=== PATIENT | male | born 1945 | race Caucasian/White ===

== ENCOUNTER 2025-01-10 06:18 | Day surgery (SDC) | payer OTHER ==
[~2025-01-10] VITALS: Ht 172.7 cm; Wt 111.1 kg
[~2025-01-10 06:18] MED LIST: ALBUAER3 IN; APIX5TAB PO; CARB200T4 PO; FINA5TAB4 PO; GABA-1250 PO; METO-289 PO; MULTLIQ29 OR; OME20GT GT; PRAV20TA3 GT; PSYL0.5223 PO; TAMS1CAP25 PO
[2025-01-10] MEDS ORDERED: BUPIVACAINE 0.25% INJ 50ML VIAL ONE (07:01)
[2025-01-10] MEDS ORDERED: LIDOCAINE 1%-Mpf/Epinephrine 1:200,000 30ml VIAL ONE (07:01)
[2025-01-10] MEDS ORDERED: ONDANSETRON HCL 4 MG/2 ML VIAL ONE (07:03)
[2025-01-10] MEDS ORDERED: LIDOCAINE 1% INJ PF 5ML AMP ONE (07:03)
[2025-01-10] MEDS ORDERED: PROPOFOL 10 MG/ML 20 ML IV ONE (07:03)
[2025-01-10] MEDS ORDERED: KETOROLAC TROMETH 30 MG/ML 1ML VIAL ONE (07:03)
[2025-01-10] MEDS ORDERED: GLYCOPYRROLATE 0.2 MG/ML 1ML VIAL ONE (07:03)
[2025-01-10] MEDS ORDERED: KETAMINE 50mg/ML 1ml syringe ONE (07:03)
[2025-01-10] MEDS ORDERED: DexAMETHasone SOD PHOS 10MG/1ML VIAL INJ ONE (07:03)
[2025-01-10] MEDS ORDERED: ceFAZolin 2 GM/D5W50ml 50 ML IV ONE (07:07)
[2025-01-10] MEDS ORDERED: LIDOCAINE 2%HCL (LOCAL ANESTH.) INJ 10ml MDV ONE (07:20)
[2025-01-10] MEDS: LIDOCAINE 1%HCL (LOCAL ANESTH) 10 ML MDV IJ ONE (07:25)
[2025-01-10] MEDS: BUPIVACAINE 0.5% P/F INJ 10 ML VIAL ONE (07:25)
--- NOTE | 2025-01-10 07:35 | DVHOP2 ---
Operative Report - 2 Report Details Date: 01/10/25 Preop Diagnosis: Left carpal tunnel syndrome Postop Diagnosis: Left carpal tunnel syndrome Surgeon: Tonye Hoang MD Job Lithographer: Aicha TERRY Anesthesiologist: Eyad Coley CRNA Anesthesia: Mac, Local Consent: The patient was informed of the risks and benefits of the procedure. These include but are not limited to complications of anesthesia, postoperative infection, incomplete relief of symptoms, recurrence of symptoms, damage to blood vessels, nerves and tendons, deep venous thrombosis, pulmonary embolism and possible need for repeat surgery in the future. Complications: None Estimated Blood Loss: None Fluids: See anesthesia record Findings: Visualized anatomy normal Indications for Surgery: Left carpal tunnel syndrome with persistent symptoms and full-time loss of sensation Name of Procedure Performed Left carpal tunnel release Procedure Details Procedure Details: Patient was brought to the operating room and placed on the table in supine position. Preop patient received IV Ancef. Tourniquet applied to left upper extremity. Conscious sedation given. Left upper extremity was prepped and draped in sterile fashion. Surgical time-out was performed verifying patient, laterality, and procedure. I injected local anesthetic in the palm of the hand at the proposed incision site. This consisted of 50% 0.5% Marcaine and 50% 2% lidocaine and proximally 8 cc were used. Extremity was then elevated, exsanguinated with Esmarch, and tourniquet inflated to 250 mm Hg. Skin incision was made subcutaneous fat was spread with scissors identifying the palmar fascia which was split in line with its fibers and self-retaining retractor applied. I then used the Francesca hand tome instruments one two and three to prepare the carpal ligament followed by use of the specialized scalpel for carpal ligament release. [place] palpation direct visualization confirmed adequate release. The wound was then closed with nylon dressed sterilely and tourniquet released. Patient tolerated the procedure well was brought to recovery room in stable condition. Condition Stable Disposition Home TONEY HOANG MD Jan 10, 2025 07:35
[2025-01-10 07:37] VITALS: RESP 15; TEMP 98.2; O2SAT 96
[2025-01-10] MEDS ORDERED: fentaNYL CITRATE 100 MCG/2 ML VL IV PRN (07:45)
[2025-01-10] MEDS ORDERED: hydrALAZINE HCL 20 MG/ML VL IV PRN (07:45)
[2025-01-10] MEDS ORDERED: FLUMAZENIL 0.1 MG/ML INJ 10ML MDV IV PRN (07:45)
[2025-01-10] MEDS ORDERED: ePHEDrine SULFATE 50 MG/ML AMP IV PRN (07:45)
[2025-01-10] MEDS ORDERED: NALOXONE HCL 0.4 MG/ML VIAL IV PRN (07:45)
[2025-01-10] MEDS ORDERED: HYDROmorphone HCL 2 MG/ML VL/or syr IV PRN (07:45)
[2025-01-10] MEDS ORDERED: ONDANSETRON HCL 4 MG/2 ML VIAL IV PRN (07:45)
[2025-01-10 07:55] VITALS: BP 139/78; PULSE 74; RESP 11; O2SAT 94
== END 2025-01-10 08:13 | disposition home or self-care (01) ==
LOC: SUR 06:18
PROVIDERS: ATTEND Orthopaedic Surgery
DX: G56.02 Carpal tunnel syndrome, left upper limb (principal); J45.909 Unspecified asthma, uncomplicated; I48.91 Unspecified atrial fibrillation; E66.01 Morbid (severe) obesity due to excess calories; Z68.37 Body mass index [BMI] 37.0-37.9, adult; Z86.2 Personal history of diseases of the blood and blood-forming organs and certain disorders involving the immune mechanism; Z98.890 Other specified postprocedural states; Z87.891 Personal history of nicotine dependence
CPT/HCPCS: 64721; J0690; J1100; J1885; J2003; J2405; J2704; J3490

== ENCOUNTER 2025-04-03 08:08 | Inpatient (IN) | payer OTHER ==
[2025-04-03] VITALS (12 sets, daily range): BP systolic 119–146; BP diastolic 69–96; PULSE 68–116; RESP 11–20; TEMP 97.7–98.7; O2SAT 93–99
[~2025-04-03] VITALS: Ht 172.7 cm; Wt 117.1 kg
[~2025-04-03 08:08] MED LIST changes: +CHOL25CH3 PO
[2025-04-03] MEDS: ROPIVACAINE 0.5% (5MG/ML) 20ML AMPULE IJ ONE (08:20)
[2025-04-03] MEDS ORDERED: MIDAZOLAM HCL 2MG/2ML 2ml VIAL (1mg/ml) ONE (08:37)
[2025-04-03] MEDS ORDERED: fentaNYL CITRATE 100 MCG/2 ML VL ONE (08:37)
[2025-04-03] MEDS ORDERED: PROPOFOL 10 MG/ML 20 ML IV ONE ×2 (08:39→10:30)
[2025-04-03] MEDS ORDERED: MORPHINE SULF PF 5 MG/10 ML VIAL ONE (08:51)
[2025-04-03] MEDS ORDERED: KETOROLAC TROMETH 30 MG/ML 1ML VIAL ONE (08:52)
[2025-04-03] MEDS: CEFEPIME 1GM/ 50ML 50 ML IV ONE (08:54)
[2025-04-03] MEDS: ceFAZolin 2 GM/D5W50ml 50 ML IV ONE (08:54)
[2025-04-03] MEDS: VANCOMYCIN HCL 1000 MG VL ONE (09:25)
[2025-04-03] MEDS: TRANEXAMIC ACID 20 ML ONE (09:25)
--- NOTE | 2025-04-03 10:46 | DVHOP2 ---
Operative Report - 2 Report Details Date: 04/03/25 Preop Diagnosis: Right knee degenerative arthritis Postop Diagnosis: Right knee degenerative arthritis Surgeon: Toney Hoang MD [place] Accommodation Consultant: Aicha TERRY Anesthesiologist: Loreta Anesthesia: Regional Drains: Kedar closed wound suction Implant: Tary clark knee size seven femur PS, size six tibial base plate, size 10 poly, size 32 patella Consent: The patient was informed of the risks and benefits of the procedure. These include but are not limited to complications of anesthesia, postoperative infection, incomplete relief of symptoms, recurrence of symptoms, damage to blood vessels, nerves and tendons, deep venous thrombosis, pulmonary embolism and possible need for repeat surgery in the future. Complications: None Estimated Blood Loss: 50 cc Fluids: See anesthesia record Findings: Varus deformity, osteophytes, denuded cartilage with eburnated bone Indications for Surgery: right knee degenerative arthritis with severe pain and functional impairment despite nonoperative management Name of Procedure Performed Right total knee arthroplasty Procedure Details Procedure Details: The patient was brought to the operating room and placed on the table in the supine position after being given spinal anesthetic with adequate analgesia obtained. Surgical timeout was performed verifying patient, laterality and procedure Preop patient received IV cefepime IV Ancef and IV tranexamic acid. Tourniquet was applied to the lower extremity. Lower extremity was prepped and draped in sterile fashion. Extremity was elevated, exsanguinated Esmarch, and tourniquet inflated. Midline incision was made followed by medial arthrotomy. I exposed the anterior medial and lateral tibial plateau and the anterior distal femur. Bovie and aqua mantis were used for hemostasis. I excised the anterior meniscal tissue with Bovie. I excised a portion of the fat pad with Bovie. The patella was everted and the knee flexed. I drilled the distal femur and suctioned the hole to reduce the risk of fat emboli. I inserted intramedullary guide with 5 degree valgus setting. I pinned the distal femoral cutting block anteriorly. Intramedullary carin was removed. Distal femoral cut was made and the block removed. I brought my attention to the tibia setting up the external cutting jig for the tibia paying attention to slope, rotation and varus valgus alignment. I set the depth and pinned the block. I used the external alignment carin to aid in checking alignment. Bone cut was made and bone removed releasing soft tissue attachments with Bovie. Cutting block removed. I then checked the extension gap and deemed adequate and removed the femur and tibia pins. I flexed the knee and applied the femoral sizing guide to the femur. I checked the size and external rotation setting at 90 degrees to [place] line and checking the epicondylar axis. I drilled the holes then removed the sizing guide and pin. I then tapped on the 4 in 1 cutting block and checked with the elias wing anteriorly to make sure that I would not notch then pinned the block. Cuts were made and the block and pins were removed. Bone was removed with curved osteotome. I used a rongeur to remove any remaining osteophytes at the femur and tibia. I then used a lamina telecommunication engineer to open up the back alternating between the medial and lateral side. Any remaining meniscal tissue was excised with scalpel. I used curved osteotome, curette and rongeur to remove any posterior osteophytes. I prophylactically coagulated with aqua mantis. I then tapped on the template for the box cut and pinned it. Box cut was made and bone removed. Template and pin removed. I then tapped on the femoral trial. I then brought my attention back to the tibia sizing it. I used the external alignment carin to make sure that rotation and alignment were good. I made a Bovie anderson at the tibial tray anderson identifying rotation for later use. I tried various tibial polytrials. [I then brought my attention to the patella. I sequentially dissected soft tissue with Bovie. I checked the thickness with caliper. I set the appropriate depth of cut on the cutting guide. I attached the cutting guide made my cut. I then sized the patella and made my drill holes. I then placed the patella trial with appropriate depth based on overall precut thickness. ] The patella tracked nicely without thumb pressure. I removed the trials. I pinned the tray and used the reamer and keel punch. The implants were brought into the field while bone preparation was started. I used both normal saline irrigation and the CarboJet to prepare the bone. I used the bone from the cuts to graft the femoral tunnel. Once cement was ready I applied cement to the tibial implant and tibial bone tapped it on a nd removed excess cement in usual fashion. In similar fashion I tapped on the femoral implant. I inserted the trial polyethylene and brought the knee into 30 degrees flexion. [I then applied the patella implant in similar fashion holding pressure with the pressurization device.] I irrigated with bactisurge irrigant. Once cement cured, I checked stability and range of motion as well as patella tracking. tourniquet was released and hemostasis maintained with aqua mantis. I inserted the polyethylene and again checked stability. I used a 2 grams of vancomycin half of which was placed deep and half superficial. I repaired the extensor mechanism with the knee in flexion with #1 Ethibond interrupted [id number]. Deep subcutaneous tissue was closed with 0 Vicryl. Superficial subcutaneous tissue was closed with 2-0 vicryl interrupted. Skin was closed with nelida. I then applied the [kedar closed wound suction]. Patient tolerated the procedure well and was brought to recovery room in stable condition. Condition Stable Disposition Still a Patient TONEY HOANG MD Apr 03, 2025 10:46
[2025-04-03] MEDS ORDERED: ACETAMINOPHEN 325 MG TAB PO PRN ×2 (11:00→11:45)
[2025-04-03] MEDS ORDERED: OMEPRAZOLE-SOD BICARB 20 MG POWDER PO ONE (11:15)
[2025-04-03] MEDS: OMEPRAZOLE-SOD BICARB 20 MG POWDER GT ONE (11:15)
[2025-04-03] MEDS ORDERED: MEPERIDINE HCL (25 MG/ML) 1ML VIAL IV PRN (11:30)
[2025-04-03] MEDS ORDERED: ACETAMINOPHEN IV 1000 MG/100ML (10MG/ML) IV PRN (11:30)
[2025-04-03] MEDS: ALBUTEROL SULF 2.5 MG/0.5ML(0.5%) NEB SOLN NEB PRN (11:57)
--- NOTE | 2025-04-03 12:15 | DVH ---
EXAM: XY R KNEE 3V XRAY CLINICAL INDICATION: postop TECHNIQUE: XY R KNEE 3V XRAY Comparison: None FINDINGS/IMPRESSION: Right total knee arthroplasty. Surgical skin nelida.
[2025-04-03] MEDS: BUPIVACAINE W/ EPINEPH 0.5% INJ 50ML MDV IJ ONE (12:55)
[2025-04-03] MEDS: BUPIVACAINE 0.5% P/F INJ 10 ML VIAL ONE (12:55)
[2025-04-03] MEDS: ACETAMINOPHEN 325 MG TAB PO SCH (12:59)
[2025-04-03] MEDS: HYDROmorphone HCL 2 MG/ML VL/or syr IV PRN (13:50)
[2025-04-03] MEDS ORDERED: ALBUTEROL SULF HFA 90MCG INH 200DOSE IN SCH (14:00)
[2025-04-03] MEDS ORDERED: ceFAZolin 2 GM/D5W50ml 50 ML IV SCH (14:00)
[2025-04-03] MEDS: ONDANSETRON HCL 4 MG/2 ML VIAL IV ONE (14:51)
[2025-04-03] MEDS: KETOROLAC TROMETH 30 MG/ML 1ML VIAL ONE (15:43)
[2025-04-03] MEDS: D5W/LACTATED RINGERS 1,000 ML IV SCH (16:47)
[2025-04-03] MEDS: PANTOPRAZOLE 40 MG TAB PO ONE (16:47)
[2025-04-03] MEDS: ceFAZolin 2 GM/D5W50ml 50 ML IV SCH (17:40)
[2025-04-03] MEDS: TAMSULOSIN HYDROCHLORIDE 0.4 MG CAP PO SCH (21:48)
[2025-04-03] MEDS: APIXABAN 2.5 MG TAB PO SCH (21:49)
[2025-04-03] MEDS: carBAMazepine 200 MG TAB PO SCH (21:49)
[2025-04-03] MEDS: PRAVASTATIN SODIUM 20 MG TAB GT SCH (21:49)
[2025-04-03] MEDS: PREGABALIN 25 MG CAP PO SCH (21:49)
[2025-04-04] VITALS (7 sets, daily range): BP systolic 106–123; BP diastolic 53–67; PULSE 91–99; RESP 17–20; TEMP 36.8; O2SAT 92–95
[2025-04-04] MEDS: PANTOPRAZOLE 40 MG TAB PO SCH (05:00)
[2025-04-04 06:04] LABS: Hematocrit 42.3 % (41.0-53.0); Hemoglobin 14.3 g/dL (13.5-17.5); Mean Corpuscular Hemoglobin 32.3 pg (28.0-32.0); Mean Corpuscular Volume 95.5 fL (80.0-100.0); Nucleated Red Blood Cells % 0.1 %
[2025-04-04 06:08] LABS: Chloride 104 mmol/L (98-107); Potassium 3.9 mmol/L (3.5-5.1); Sodium 137 mmol/L (136-145)
[2025-04-04 06:09] LABS: Anion Gap 10 (5-15); Calcium 8.9 mg/dL (8.7-10.4); Carbon Dioxide 23 mmol/L (20-31)
[2025-04-04 06:14] LABS: BUN/Creatinine Ratio 10.8 (10.0-20.0); Blood Urea Nitrogen 12 mg/dL (9-23)
[2025-04-04 06:16] LABS: Glucose 137 mg/dL (74-106)
[2025-04-04] MEDS: FINASTERIDE 5 MG TAB PO SCH (08:51)
[2025-04-04] MEDS: METOPROLOL SUCCINATE XL 50 MG TAB PO SCH (08:52)
[2025-04-04] MEDS ORDERED: OMEPRAZOLE-SOD BICARB 20 MG POWDER GT SCH (10:00)
[2025-04-04] MEDS ORDERED: OMEPRAZOLE 20 MG GT SCH (10:00)
[2025-04-04] MEDS ORDERED: OMEPRAZOLE-SOD BICARB 20 MG POWDER PO SCH (10:00)
--- NOTE | 2025-04-04 12:44 | DVHDS2 ---
Discharge Summary Date of Admission Apr 03, 2025 at 10:47 Date of Discharge: Apr 04, 2025 Labs/Diagnostic Data: Laboratory Results Test 04/04/25 05:00 White Blood Count 12.5 10^3/uL (4.4-10.8) Red Blood Count 4.43 10^6/uL (4.5-5.90) Hemoglobin 14.3 g/dL (13.5-17.5) Hematocrit 42.3 % (41.0-53.0) Mean Corpuscular Volume 95.5 fL (80.0-100.0) Mean Corpuscular Hemoglobin 32.3 pg (28.0-32.0) Mean Corpuscular Hemoglobin Concent 33.8 g/dL (32.0-36.0) Red Cell Distribution Width 12.9 % (11.8-14.3) Platelet Count 221 10^3/uL (140-450) Mean Platelet Volume 7.9 fL (6.9-10.8) Neutrophils (%) (Auto) 79.9 % (37.0-80.0) Lymphocytes (%) (Auto) 10.9 % (10.0-50.0) Monocytes (%) (Auto) 9.1 % (0.0-12.0) Eosinophils (%) (Auto) 0.0 % (0.0-7.0) Basophils (%) (Auto) 0.1 % (0.0-2.0) Neutrophils # (Auto) 10.0 10 ^3/uL (1.6-8.6) Lymphocytes # (Auto) 1.4 10 ^3/uL (0.4-5.4) Monocytes # (Auto) 1.1 10 ^3/uL (0-1.3) Eosinophils # (Auto) 0 10 ^3/uL (0-0.8) Basophils # (Auto) 0 10 ^3/uL (0-0.2) Nucleated Red Blood Cells 0.1 % Sodium Level 137 mmol/L (136-145) Potassium Level 3.9 mmol/L (3.5-5.1) Chloride Level 104 mmol/L (98-107) Carbon Dioxide Level 23 mmol/L (20-31) Anion Gap 10 (5-15) Blood Urea Nitrogen 12 mg/dL (9-23) Creatinine 1.11 mg/dL (0.700-1.30) Glomerular Filtration Rate Calc 68 mL/min (>90) BUN/Creatinine Ratio 10.8 (10.0-20.0) Serum Glucose 137 mg/dL (74-106) Calcium Level 8.9 mg/dL (8.7-10.4) Other Laboratory Tests 04/04/25 05:00 Brief Hx & Hospital Course: PATIENT WAS BROUGHT TO THE HOSPITAL YESTERDAY TO UNDERGO A RIGHT TOTAL KNEE ARTHROPLASTY. HE TOLERATED THE PROCEDURE WELL WITHOUT COMPLICATIONS AND WAS KEPT OVERNIGHT FOR POSTOPERATIVE OBSERVATION. HE HAS REMAINED MEDICALLY STABLE DENYING ANY OVERNIGHT EVENTS AND REPORTS THAT HE WAS ABLE TO GET UP AND WALK WITH THE HELP OF PHYSICAL THERAPY AND HIS WALKER AND WAS ABLE TO GET DOWN TO THE NURSE'S STATION AND BACK TO HIS BED WITH SOME POSTOPERATIVE KNEE PAIN. PATIENT IS OTHERWISE FEELING WELL DENYING ANY OTHER COMPLAINTS OR CONCERNS DURING MY EVALUATION AND IS READY TO GO HOME. Condition at Discharge: Stable Final Diagnosis/Problems List Right knee degenerative arthritis Discharge Disposition: Home Discharge Instruct/Medications Diet: Regular Activity: See Comment Activity comment: Patient to remain weight-bearing as tolerated with the assistance of his walker Follow Up/Referral: Patient instructed to follow up with our office in 10-14 days for his 1st postoperative evaluation Medications: Rx sent via our outpatient EMR system Scheduled Albuterol Sulfate (Ventolin Mdi), 2 MCG IN Q4HP, (Reported) Apixaban Base (Eliquis), 5 MG PO BID, (Reported) Carbamazepine (Carbamazepine), 200 MG PO BID, (Reported) Cholecalciferol (D3), 25 MCG PO DAILY, (Reported) Finasteride (Finasteride), 5 MG PO DAILY, (Reported) Gabapentin (Gabapentin), 300 MG PO PRN, (Reported) Metoprolol Succinate (Metoprolol Succinate Er), 50 MG PO DAILY, (Reported) Multiple Vitamins W/ Minerals (Complete Multivitamin/Mul), 1 OR DAILY, (Reported) Omeprazole (Prilosec Susp (For Gt)), 20 MG GT DAILY, (Reported) Pravastatin Sodium (Pravachol Tablet), 10 MG GT HS, (Reported) Psyllium (Psyllium Fiber), Unknown Dose PO DAILY, (Reported) Tamsulosin HCl (Tamsulosin Hydrochloride), 0.4 MG PO BID, (Reported) Discharge Statement: "Patient was advised to return to the ER or call 911 if any headaches, dizziness, shortness of breath, chest pain, abdominal pain, bleeding, fevers, or worsening of medical condition. Patient was counseled about treatment plan, medications, possible side effects, patientverbalized understanding. All questions were answered to the best of my ability. This discharge took greater then 30 minutes in planning, reviewing documentation, counseling the patient, and discussing with other team members." ASSESSMENT ASSESSMENT Assessment Right knee degenerative arthritis TONO HIGHTOWER Apr 04, 2025 12:44
--- NOTE | 2025-04-04 12:45 | DVHPN2 ---
Progress Note - Dictate Date Seen: Apr 04, 2025 Medical Necessity Reason Pt with a Central, PICC or Fol: No Subjective Patient was lying comfortably in bed during my evaluation and reports some postoperative knee pain that is being improved somewhat with the help of pain medication. Patient reports that he was able to get up and walk with the help of physical therapy and his walker and was able to get down to the nurse's station and back to his bed with some postoperative knee pain but felt stable. Patient was otherwise feeling well denying any other complaints or concerns during my evaluation and is ready to go home. vital signs Vital Sign Date Time Temp Pulse Resp B/P (MAP) Pulse Ox O2 Delivery O2 Flow Rate FiO2 04/04/25 11:26 98.3 04/04/25 09:44 94 Room Air* 0 21 04/04/25 08:52 96 106/67 04/04/25 08:40 20 Total Intake and Output 04/03/25 04/03/25 04/04/25 15:00 23:00 07:00 Intake Total 220 ml 50 ml 1750 ml Output Total 140 ml 2000 ml Balance 220 ml -90 ml -250 ml medications Current Medications Medications Dose Ordered Sig/Radha Route Start Time Stop Time Status Last Admin Dose Admin Carbamazepine 200 mg BID PO 04/03/25 22:00 04/04/25 08:52 200 MG Finasteride 5 mg DAILY PO 04/04/25 10:00 04/04/25 08:51 5 MG Metoprolol Succinate 50 mg DAILY PO 04/04/25 10:00 04/04/25 08:52 50 MG Pravastatin Sodium 10 mg HS GT 04/03/25 22:00 04/03/25 21:49 10 MG Tamsulosin HCl 0.4 mg BID PO 04/03/25 22:00 04/04/25 08:51 0.4 MG Patient Own Medication 20 mg DAILY GT 04/04/25 10:00 UNV Dextrose/Lactated Ringer's 1,000 ml @ 100 mls/hr Q10H IV 04/03/25 11:00 04/04/25 07:00 100 MLS/HR Acetaminophen 650 mg Q6HR PO 04/03/25 12:00 04/04/25 11:26 650 MG Pregabalin 50 mg BID PO 04/03/25 22:00 04/04/25 08:52 50 MG Oxycodone HCl 5 mg Q4HP PRN PO 04/03/25 11:00 04/03/25 22:55 5 MG Oxycodone HCl 10 mg Q4HP PRN PO 04/03/25 11:00 04/03/25 14:36 10 MG Apixaban 2.5 mg BID PO 04/03/25 22:00 04/15/25 21:59 04/04/25 08:51 2.5 MG Albuterol 2.5 mg Q4HPRN PRN NEB 04/03/25 11:30 04/03/25 11:57 2.5 MG Acetaminophen 650 mg Q4HP PRN PO 04/03/25 11:45 Pantoprazole Sodium 40 mg DAILY@0600 PO 04/04/25 06:00 04/04/25 05:00 40 MG objective A&O x4 in no acute distress Knee range of motion grossly limited with pain on movement Orion dressing clean, dry, intact, and maintaining suction No distal edema or calf tenderness to palpation Neurovascularly intact with cap refill less than 2 seconds laboratory and microbiology Laboratory Tests 04/04/25 05:00 Test 04/04/25 05:00 Range/Units Serum Glucose 137 H 74-106 mg/dL Assessment/Plan Patient to be discharged home and advised to remain weight-bearing as tolerated with the assistance of his walker. I advised the patient to maintain his dressings clean, dry, intact, and maintaining suction and to call our office to schedule for his 1st postoperative evaluation and if he has any further questions or concerns. Rx sent via our outpatient EMR system. Patient understood and agreed. Plan discussed with: Patient TONO HIGHTOWER Apr 04, 2025 12:45
[2025-04-04] MEDS ORDERED: ETOMIDATE (2MG/ML) 10ML VIAL IV ONE (13:29)
== END 2025-04-04 16:05 | disposition home or self-care (01) | DRG 470 ==
LOC: SUR 08:08 → OVERFLOW 10:47 → WEST WING 15:57
PROVIDERS: ADMIT Orthopaedic Surgery; ATTEND Orthopaedic Surgery
PROC: 0SRC0J9 Replacement of Right Knee Joint with Synthetic Substitute, Cemented, Open Approach (ICD-10-PCS; principal; 2025-04-03 08:55)
DX: M17.11 Unilateral primary osteoarthritis, right knee (principal); G89.18 Other acute postprocedural pain; M21.161 Varus deformity, not elsewhere classified, right knee; M25.761 Osteophyte, right knee; Z79.899 Other long term (current) drug therapy
CPT/HCPCS: 36415; 73562; 80048; 85025; 86850; 86900; 86901; 94640; 97116; 97163; 97530; G0378; J1885; J2250; J2405; J2704; J3490